=== PATIENT | female | born 1940 | race Caucasian/White ===

== ENCOUNTER 2019-11-18 20:42 | Inpatient (IN) | payer MEDICARE, OTHER ==
[~2019-11-18] VITALS: Ht 160 cm; Wt 68.0 kg
--- NOTE | 2019-11-18 20:55 | NUR ---
BIB AMBULANCE WITH REPORT OF SOB/FEVER/NON-VERBAL 3 HRS TANK CHARGER.
[2019-11-18] MEDS ORDERED: IV NS 1000 ML 1,000 ML IV ONE (20:59)
[2019-11-18 21:23] LABS: BASOPHILS # (AUTO) 0.1 K/uL (0.0-8.0); BASOPHILS % (AUTO) 0.5 % (0.0-2.0); EOSINOPHILS # (AUTO) 0.2 K/uL (0.0-0.7); EOSINOPHILS % (AUTO) 1.2 % (0.0-7.0); HEMATOCRIT 42.9 % (31.2-41.9); HEMOGLOBIN 13.8 g/dL (10.9-14.3); LYMPHOCYTES # (AUTO) 2.6 K/uL (20.0-40.0); LYMPHOCYTES % (AUTO) 15.2 % (20.5-51.5); MEAN CORPUSCULAR HEMOGLOBIN 26.3 uug (24.7-32.8); MEAN CORPUSCULAR HGB CONC 32 g/dL (32.3-35.6); MEAN CORPUSCULAR VOLUME 82.1 fL (75.5-95.3); MONOCYTES # (AUTO) 0.9 K/uL (2.0-10.0); MONOCYTES % (AUTO) 5.1 % (0.0-11.0); NEUTROPHILS # (AUTO) 13.3 K/uL (1.8-8.9); PLATELET COUNT (AUTO) 328 K/uL (179-408); RED BLOOD CELL COUNT(AUTO) 5.22 MIL/uL (3.63-4.92); WHITE BLOOD COUNT (AUTO) 17.1 K/uL (3.8-11.8)
--- NOTE | 2019-11-18 21:26 | NUR ---
Patient transported to CT in stable condition.
[2019-11-18 21:27] LABS: CREATININE 0.9 mg/dL (0.6-1.3)
[2019-11-18 21:39] LABS: *BILIRUBIN,URIN NEGATIVE (NEGATIVE); *BLOOD, URINE TRACE LYSED (NEGATIVE); *CLARITY,URINE CLEAR (CLEAR); *COLOR,URINE YELLOW (YELLOW); *KETONES,URINE NEGATIVE (NEGATIVE); *UROBILINOGEN,URINE 0.2 E.U./dl (NORMAL); LEUKOCYTE ESTERASE ,URINE NEGATIVE (NEGATIVE); NITRITE, URINE NEGATIVE (NEGATIVE); UGLUCOSE NEGATIVE (NEGATIVE)
[2019-11-18 21:39] LABS: BILIRUBIN,TOTAL 0.5 mg/dL (0.2-1.0); TOTAL PROTEIN, SERUM 7.3 g/dL (6.4-8.2)
--- NOTE | 2019-11-18 21:40 | NUR ---
Back from CT.
[2019-11-18] MEDS ORDERED: ACETAMINOPHEN 325 MG SUPP RC ONE (21:45)
[2019-11-18] MEDS ORDERED: ACETAMINOPHEN 650 MG SUPP.RECT RC ONE ×2 (21:45→21:49)
[2019-11-18] MEDS ORDERED: ACETAMINOPHEN 325 MG SUPP ONE (21:51)
--- NOTE | 2019-11-18 21:55 | NUR ---
TELEPHONE CALL TO PT DAUGHTER BELL AND OBTAIN VERBAL CONSENT FOR CT ANGIOGRAM, WITNESSED BY THIS RN AND DEON LOZA.
[2019-11-18] MEDS ORDERED: MEROPENEM 1,000 MG in IV NORMAL SALINE 100 ML IV ONE (22:00)
[2019-11-18] MEDS ORDERED: VANCOMYCIN IV 1,000 MG in IV DEXTROSE 5% 250 ML IV ONE (22:00)
[2019-11-18] MEDS ORDERED: SWABABLE VALVE TRANSFER SET EA MC ONE (22:01)
[2019-11-18] MEDS ORDERED: IOHEXOL 350 100 ML INFUS..BTL ONE (22:01)
[2019-11-18] MEDS ORDERED: IV NORMAL SALINE 250 ML IV ONE (22:01)
[2019-11-18] MEDS ORDERED: VANCOMYCIN IV 200 ML ONE (22:06)
[2019-11-18] MEDS ORDERED: MEROPENEM 1GM/NS 100ML IVPB **ER PYXIS ONLY IV ONE (22:07)
[2019-11-18 22:10] LABS: BACTERIA,URINE NONE SEEN /HPF (NONE SEEN); WBC,URINE 0-3 /HPF (0-3)
--- NOTE | 2019-11-18 22:43 | NUR ---
Back from CT.
--- NOTE | 2019-11-18 23:22 | NUR ---
Cooling measure provided.
--- NOTE | 2019-11-18 23:32 | NUR ---
Dr. Jones at bedside.
[2019-11-19] MEDS ORDERED: CEFTRIAXONE 2 G in IV DEXTROSE 5% 100 ML IV ONE ×2
[2019-11-19] MEDS ORDERED: CEFTRIAXONE 1 G VIAL ONE (00:06)
[2019-11-19] MEDS ORDERED: MEROPENEM 500MG/NS 50ML PB ***ER PYXIS ONLY IV ONE (00:06)
--- NOTE | 2019-11-19 00:43 | NUR ---
Dr. Jones on panel call with Julissa Gaming . Patient accepted for admission to tele unit, Dx Encephalopaty and febrile illness. .
[2019-11-19] MEDS ORDERED: Z GUARD REMEDY PASTE 57 GM TUBE TOP PRN (00:45)
[2019-11-19] MEDS ORDERED: ONDANSETRON 4 MG/2 ML VIAL IV PRN (00:45)
[2019-11-19] MEDS ORDERED: MORPHINE SULFATE 2 MG/1 ML DISP.SYRIN IV PRN (00:45)
[2019-11-19] MEDS ORDERED: HYDROCODONE/APAP 5-325MG TABLET PO PRN (00:45)
[2019-11-19] MEDS ORDERED: MAGNESIUM HYDROXIDE 30 ML LIQUID UDC PO PRN (00:45)
--- NOTE | 2019-11-19 00:45 | NUR ---
Patient more awake and alert. Able to answer simple question and verbalized her name and her daughter's name. No s/sx of pain or SOB. O2 sat at 99% with O2 at 3LPM via NC in place. Cooling measure continue. Current temp at 101.9 rectally. Continue to monitor.
[2019-11-19] MEDS ORDERED: IV NORMAL SALINE 1000 ML BAG IV ONE (01:00)
--- NOTE | 2019-11-19 01:07 | NUR ---
TC to pt daughter Fabiola and updated on patient current condition and very appreciative of the call. Stated she will call in the morning to get another update regarding pt condition.
[2019-11-19] MEDS ORDERED: ENOXAPARIN SODIUM 40 MG/0.4 ML DISP.SYRIN SQ ONE (01:40)
[2019-11-19] MEDS ORDERED: ACETAMINOPHEN 325 MG TABLET ONE (01:40)
[2019-11-19] MEDS: ENOXAPARIN SODIUM 40 MG/0.4 ML DISP.SYRIN SQ SCH ×2 (01:47→20:49)
--- NOTE | 2019-11-19 03:01 | NUR ---
Patient urinated on the bedpan. Latest temp. 100.8 rectally. Remains awake, alert and verbally responsive.
[2019-11-19] MEDS ORDERED: IV NS 1000 ML 1,000 ML IV ONE (04:00)
--- NOTE | 2019-11-19 05:03 | NUR ---
Patient latest temp 99.4 rectally. Remains awake, alert and verbally responsive, smiling. In no acute distress. Still on O2 at 3LPM via NC in place. O2 sat remains on 100%. IVF infusing to left FA #20G.
[2019-11-19] MEDS ORDERED: MEROPENEM 500 MG VIAL IV ONE (05:19)
[2019-11-19] MEDS ORDERED: MEROPENEM 0.5 G in IV NORMAL SALINE 50 ML IV ONE (06:00)
[2019-11-19 08:30] VITALS: BP 98/43
--- NOTE | 2019-11-19 08:30 | NUR ---
Received pt from ER via [facility].Pt noted to have SOB on exertion.Placed on oxygen via NC at 4liters.Pt speaks pharsi. no c/o pain.Spoke with patient daughter Fabiola to obtain patient information,code status,medication history.Pt daughter will get list of medications.Will continue to follow up on pt information.
--- NOTE | 2019-11-19 08:31 | NUR ---
On arrival to telemetry, patient started c/o pains to R knee,+old healed surgical scar seen@R knee area, patient also started to have audible adventitious breath sounds while complaining of R knee pains. Patient was assisted to bed by 2 nurses (Cecilio & ), endorsed to DEON Galvan accordingly. COVID-19 isolation observed.
[2019-11-19 10:07] VITALS: BP 110/52
[2019-11-19] MEDS: VANCOMYCIN IV 750 MG in IV DEXTROSE 5% 250 ML IV SCH ×2 (11:57→22:54)
[2019-11-19 14:00] VITALS: BP 108/55
[2019-11-19] MEDS ORDERED: MEROPENEM 0.5 G in IV NORMAL SALINE 50 ML IV SCH (14:00)
--- NOTE | 2019-11-19 16:32 | NUR ---
Spoke with pt daughter Fabiola regarding pt is negative for COvid.
[2019-11-19] MEDS: ALBUTEROL SULFATE 8 GM HFA.AER.AD IH PRN ×2 (16:43→22:06)
[2019-11-19 17:00] VITALS: BP 95/45
[2019-11-19] MEDS ORDERED: MEROPENEM 1 G in IV NORMAL SALINE 100 ML IV SCH (18:00)
[2019-11-19 18:30] VITALS: BP 107/48
--- NOTE | 2019-11-19 20:00 | NUR ---
Patient received into care laying in bed, resting comfortably. Patient is Farsi speaking but can speak/understand some Greenlandic. Patient has no complaints of pain or discomfort at this. All safety, fall, allergy, and isolation precautions are in place. Call light and personal items are within reach at all times. Will continue to monitor and assess.
--- NOTE | 2019-11-19 20:20 | NUR ---
This nurse was notified by LILY Cruz that pt has a oral temperature of 102.1. This nurse initiated cooling measures and provided pt with prescribed oral Tylenol 650mg. Will continue to monitor and assess.
[2019-11-19 20:21] VITALS: BP 102/47
[2019-11-19] MEDS: methylPREDNISolone SOD SUCC 40 MG/ML VIAL IV SCH (20:48)
--- NOTE | 2019-11-19 20:50 | NUR ---
This nurse was providing patient's 2100h prescribed medications when she noticed that pt was SOB at 45 RR/min 98% oxygen saturation at 4L/min with audible wheezing. This nurse called for a rapid response and notified DIRECTOR PHYSICAL THERAPY [facility] of patient's current status. MD Becerra ordered stat CXR, ABGs, and CBC/BNP. Will continue to monitor and assess.
[2019-11-19] MEDS: ACETAMINOPHEN 325 MG TABLET PO PRN (20:52)
--- NOTE | 2019-11-19 21:30 | NUR ---
This nurse reassessed pt's oral temperature and it is now 99.1. Will continue to monitor and asses.
[2019-11-19] MEDS ORDERED: FUROSEMIDE 20 MG/2 ML VIAL IV ONE (21:45)
--- NOTE | 2019-11-19 21:45 | NUR ---
AMBER Spring ordered 20mg Lasix one time IV push. This nurse contacted CUP SETTER LOCKSTITCH to advise of pt BP of 102/59. AMBER Spring said okay to hold. Will continue to monitor and assess. Addendum: 11/19/19 at 2220 by ZAKIA REES RN AMBER Spring said okay to hold 20mg Lasix.
[2019-11-19 22:49] LABS: BASOPHILS % (AUTO) 0.1 % (0.0-2.0); CREATININE 0.8 mg/dL (0.6-1.3); HEMATOCRIT 36.9 % (31.2-41.9); HEMOGLOBIN 11.8 g/dL (10.9-14.3); LYMPHOCYTES # (AUTO) 1.3 K/uL (20.0-40.0); LYMPHOCYTES % (AUTO) 6.4 % (20.5-51.5); MEAN CORPUSCULAR HEMOGLOBIN 26.1 uug (24.7-32.8); MEAN CORPUSCULAR HGB CONC 32 g/dL (32.3-35.6); MEAN CORPUSCULAR VOLUME 82.1 fL (75.5-95.3); MONOCYTES # (AUTO) 1.6 K/uL (2.0-10.0); MONOCYTES % (AUTO) 7.6 % (0.0-11.0); NEUTROPHILS # (AUTO) 17.5 K/uL (1.8-8.9); NEUTROPHILS % (AUTO) 85.9 % (38.5-71.5); PLATELET COUNT (AUTO) 264 K/uL (179-408); POTASSIUM 3.1 mmol/L (3.5-5.1); WHITE BLOOD COUNT (AUTO) 20.4 K/uL (3.8-11.8)
--- NOTE | 2019-11-19 23:45 | NUR ---
This nurse contacted DEVELOPMENT ASSOCIATE [place] regarding new order for IV Merrem 1g q 8 hours d/t patient already having an order for Merrem 1g q 12h. This nurse provided patient's current BUN 13 and Creatinine 0.8. DEVELOPMENT ASSOCIATE Clementine advised to d/c Merrem 1g q 12h and change to Merrem 1g q 8h.
[2019-11-20] MEDS ORDERED: MEROPENEM 1 G in IV NORMAL SALINE 100 ML IV SCH ×3 (00:25→14:00)
[2019-11-20 00:34] VITALS: BP 111/42
--- NOTE | 2019-11-20 05:00 | NUR ---
Patient slept comfortably throughout night with no further episodes of tachypnea noted by this nurse. All prescribed medications and IV antibiotics provided as ordered and tolerated well by patient, with no ASE noted/observed by this nurse. All safety, isolation, allergy, and fall precautions remain in place. Call light and personal items remain within reach. Patient's daughter, Fabiola, is going to bring patient's dentures and home medication list to hospital today, 11/20/2019, and leave them with security
[2019-11-20 05:24] VITALS: BP 110/42
[2019-11-20 05:49] LABS: ABG BASE EXCESS 1.2 mmol/L; ABG HCO3 24.9 mmol/L; ABG PCO2 36.1 mmHg (35.0-45.0); ABG PH 7.456 (7.350-7.450); ABG PO2 87.5 mmHg (75.0-100.0); ABG SITE RIGHT RADIAL; ABG TOTAL HEMOGLOBIN 12.2 G/dL (12.0-16.0); COHb 0.9 % (0.5-1.5); MetHb 0.3 % (0.0-1.5); O2Hb 96.2 % (94.0-97.0); VENT MODE Nasal Cannula
[2019-11-20 05:52] LABS: BASOPHILS # (AUTO) 0.1 K/uL (0.0-8.0); BASOPHILS % (AUTO) 0.5 % (0.0-2.0); HEMATOCRIT 38.7 % (31.2-41.9); HEMOGLOBIN 12.2 g/dL (10.9-14.3); LYMPHOCYTES # (AUTO) 1.3 K/uL (20.0-40.0); LYMPHOCYTES % (AUTO) 6.2 % (20.5-51.5); MEAN CORPUSCULAR HEMOGLOBIN 25.9 uug (24.7-32.8); MEAN CORPUSCULAR HGB CONC 31 g/dL (32.3-35.6); MEAN CORPUSCULAR VOLUME 82.4 fL (75.5-95.3); MONOCYTES % (AUTO) 4.8 % (0.0-11.0); NEUTROPHILS # (AUTO) 18.9 K/uL (1.8-8.9); NEUTROPHILS % (AUTO) 88.5 % (38.5-71.5); PLATELET COUNT (AUTO) 265 K/uL (179-408); WHITE BLOOD COUNT (AUTO) 21.4 K/uL (3.8-11.8)
[2019-11-20 06:37] LABS: BILIRUBIN,TOTAL 0.7 mg/dL (0.2-1.0); MAGNESIUM 1.8 mg/dL (1.8-2.4); PHOSPHOROUS 2.8 mg/dL (2.5-4.9); POTASSIUM 3.4 mmol/L (3.5-5.1); TOTAL PROTEIN, SERUM 6.3 g/dL (6.4-8.2)
--- NOTE | 2019-11-20 07:30 | NUR ---
Received patient resting comfortably in bed. No sign of respiratory distress noted, patient is saturating well on 3 L of oxygen. A slight wheeze can be heard from the patient's lungs. Will talk to Dr Mao about breathing treatments for the patient once Covid results are complete. Patient denies any pain at this time. IV in right upper arm midline 180 gauge running 10 ml/hr to keep line open. Patient is awake alert and oriented, Farsi speaking but is able to make needs know. At this time patient is still on isolations precautions. Safety precautions in place, bed in lowest position and locked with alarm activated. Patient belongings and call light within reach. Will continue to monitor.
[2019-11-20] MEDS: methylPREDNISolone SOD SUCC 40 MG/ML VIAL IV SCH ×3 (08:59→21:10)
[2019-11-20] MEDS ORDERED: MEROPENEM 0.5 G in IV NORMAL SALINE 50 ML IV SCH (09:00)
[2019-11-20] MEDS ORDERED: POTASSIUM CHLORIDE 20 MEQ TAB.PRT.SR PO ONE ×2 (11:00→11:20)
[2019-11-20 11:30] VITALS: BP 104/57
[2019-11-20] MEDS: VANCOMYCIN IV 750 MG in IV DEXTROSE 5% 250 ML IV SCH ×2 (11:38→22:13)
[2019-11-20] MEDS: MEROPENEM 1 G in IV NORMAL SALINE 100 ML IV SCH (13:50)
[2019-11-20] MEDS: IPRATROPIUM BROMIDE 0.5 MG/2.5 ML NEBU NEB SCH ×2 (15:47→21:11)
[2019-11-20] MEDS: ALBUTEROL SULFATE 2.5 MG/ 0.5 ML NEBU NEB SCH ×2 (15:47→21:11)
[2019-11-20 16:00] VITALS: BP 112/36
--- NOTE | 2019-11-20 17:45 | NUR ---
Last temperature was 99.2, offered patient ice packs to which she refused. Will continue to monitor
[2019-11-20] MEDS: MONTELUKAST SODIUM 10 MG TABLET PO SCH (18:02)
--- NOTE | 2019-11-20 18:38 | NUR ---
Patient is resting comfortably in bed with no sign of respiratory distress noted by this nurse. All prescribed medications and IV antibiotics provided as ordered and tolerated well by patient, with no adverse side effects observed. Patient's PCR results also came back negative, waiting for MD to DC isolation. All safety, isolation, allergy, and fall precautions remain in place. Call light and personal items remain within reach. Will endorse to the oncoming nurse.
--- NOTE | 2019-11-20 19:15 | NUR ---
Received pt in bed, resting comfortably. Pt is awake and has no s/s of acute distress or pain at this time. V/S stable on 3L NC at 97%. [place] midline is intact and has no s/s of infection noted. Pt. is afebrile. Safety measures in place. Bed alarm on. Side railsx2 up. Personal belongings and call light within reach. Will continue with the plan of care.
[2019-11-20 20:00] VITALS: BP 90/38
[2019-11-20] MEDS: ENOXAPARIN SODIUM 40 MG/0.4 ML DISP.SYRIN SQ SCH (21:12)
[2019-11-21] MEDS: ALBUTEROL SULFATE 2.5 MG/ 0.5 ML NEBU NEB SCH ×5 (00:05→20:40)
[2019-11-21] MEDS: IPRATROPIUM BROMIDE 0.5 MG/2.5 ML NEBU NEB SCH ×5 (00:05→20:40)
[2019-11-21 00:33] VITALS: BP 107/40
[2019-11-21] MEDS: MEROPENEM 1 G in IV NORMAL SALINE 100 ML IV SCH ×2 (01:09→13:38)
[2019-11-21] MEDS: ACETAMINOPHEN 325 MG TABLET PO PRN (01:17)
[2019-11-21] MEDS: methylPREDNISolone SOD SUCC 40 MG/ML VIAL IV SCH ×2 (05:12→20:35)
[2019-11-21 05:41] LABS: BASOPHILS # (AUTO) 0.1 K/uL (0.0-8.0); BASOPHILS % (AUTO) 0.3 % (0.0-2.0); HEMATOCRIT 36.5 % (31.2-41.9); HEMOGLOBIN 11.5 g/dL (10.9-14.3); LYMPHOCYTES # (AUTO) 1.3 K/uL (20.0-40.0); LYMPHOCYTES % (AUTO) 5.9 % (20.5-51.5); MEAN CORPUSCULAR HGB CONC 32 g/dL (32.3-35.6); MEAN CORPUSCULAR VOLUME 82.3 fL (75.5-95.3); MONOCYTES # (AUTO) 0.7 K/uL (2.0-10.0); MONOCYTES % (AUTO) 3.2 % (0.0-11.0); NEUTROPHILS # (AUTO) 19.7 K/uL (1.8-8.9); NEUTROPHILS % (AUTO) 90.6 % (38.5-71.5); PLATELET COUNT (AUTO) 307 K/uL (179-408); RED BLOOD CELL COUNT(AUTO) 4.44 MIL/uL (3.63-4.92); WHITE BLOOD COUNT (AUTO) 21.7 K/uL (3.8-11.8)
[2019-11-21 06:01] LABS: MAGNESIUM 2.1 mg/dL (1.8-2.4); PHOSPHOROUS 2.2 mg/dL (2.5-4.9)
[2019-11-21 06:07] LABS: CREATININE 0.8 mg/dL (0.6-1.3); POTASSIUM 3.7 mmol/L (3.5-5.1)
[2019-11-21 06:25] VITALS: BP 117/45
--- NOTE | 2019-11-21 06:51 | NUR ---
Pt slept intermittently throughout the night. Pt is awake and has no s/s of acute distress or pain at this time. Pt is febrile with 99.6 temp. Tylenol was given. Will continue to monitor. Otherwise V/S stable on 3L NC at 97%. Pt is NSR 68 on tele monitor. Comfort care and needs attended. Fall and aspiration precaution maintained. Safety measures in place. Bed low and locked in position, call light within reach. Will endorse to the oncoming nurse accordingly.
--- NOTE | 2019-11-21 07:35 | NUR ---
Patient is resting comfortably in bed with no sign of respiratory distress noted by this nurse. Report from nurse noted elevated temperature but not time for prescribed medication. Started with cooling measures, placed ice packs in groin tylor and armpit. Patient is no longer on isolation, Covid results cam back negative. IV in right upper arm midline 18 gauge. Patient is also on 3L of oxygen and saturating well. All safety, isolation, allergy, and fall precautions remain in place. Call light and personal items remain within reach. Will continue to monitor and observe
[2019-11-21] MEDS: VANCOMYCIN IV 750 MG in IV DEXTROSE 5% 250 ML IV SCH ×2 (11:11→22:29)
[2019-11-21 11:31] VITALS: BP 100/48
[2019-11-21] MEDS ORDERED: NEUTRA PHOS PACKET PO ONE (16:30)
[2019-11-21] MEDS: MONTELUKAST SODIUM 10 MG TABLET PO SCH (17:37)
--- NOTE | 2019-11-21 18:47 | NUR ---
Patient is resting comfortably in bed with no sign of respiratory distress noted by this nurse. All prescribed medications and IV antibiotics provided as ordered and tolerated well by patient, with no adverse side effects observed. All safety, isolation, allergy, and fall precautions remain in place. Call light and personal items remain within reach. Will endorse to the oncoming nurse.
--- NOTE | 2019-11-21 19:45 | NUR ---
Received patient awake and alert. Patient shows no signs or symptom of distress at this time. Vital signs stable. Afebrile at this time. NSR on tele monitor. Bed set to lowest position. Call light within reach. Side rails X2 are up. Will continue to monitor patient.
[2019-11-21 20:00] VITALS: BP 127/53
[2019-11-21] MEDS: ENOXAPARIN SODIUM 40 MG/0.4 ML DISP.SYRIN SQ SCH (20:34)
[2019-11-22] VITALS: BP 99/40
[2019-11-22] MEDS: MEROPENEM 1 G in IV NORMAL SALINE 100 ML IV SCH ×2 (01:08→14:11)
[2019-11-22 04:00] VITALS: BP 114/40
--- NOTE | 2019-11-22 06:11 | NUR ---
Patient shows no signs or symptoms of distress at this time. Resting comfortably in bed. Vital signs stable. Afebrile throughout the shift. 98% O2 saturation with 3L NC. NSR on tele monitor. Received call from Abida, Nuclear Medicine, and WBC scan will be done around [id number]. Will endorse patient to day shift nurse in stable condition.
[2019-11-22] MEDS: ALBUTEROL SULFATE 2.5 MG/ 0.5 ML NEBU NEB SCH ×4 (07:35→20:14)
[2019-11-22] MEDS: IPRATROPIUM BROMIDE 0.5 MG/2.5 ML NEBU NEB SCH ×4 (07:35→20:14)
--- NOTE | 2019-11-22 08:00 | NUR ---
Wheezing noted on patient. Pt alert and oriented x 4. PT Farsi speaking but able to make her needs known. R brachial MIDLINE sluggish on flushing. Decreased o2 to 2 lit with saturation of 96%. Pt denies any c/o pain. Call light is within reach.
[2019-11-22] MEDS: methylPREDNISolone SOD SUCC 40 MG/ML VIAL IV SCH ×2 (08:44→21:03)
[2019-11-22 09:33] LABS: CREATININE 0.8 mg/dL (0.6-1.3); POTASSIUM 3.9 mmol/L (3.5-5.1)
[2019-11-22] MEDS: VANCOMYCIN IV 750 MG in IV DEXTROSE 5% 250 ML IV SCH ×2 (11:53→22:43)
[2019-11-22 12:00] VITALS: BP 140/58
--- NOTE | 2019-11-22 13:00 | NUR ---
PT taken back by nuclear med by
[2019-11-22 16:32] VITALS: BP 124/69
--- NOTE | 2019-11-22 17:00 | NUR ---
NEW MIDLINE inserted by PICC line nurse on left brachial. Pt tolerated procedure.
[2019-11-22] MEDS: MONTELUKAST SODIUM 10 MG TABLET PO SCH (18:08)
--- NOTE | 2019-11-22 18:15 | NUR ---
1800Called LAb secondary to recheck of h/h is not done yet. microbiology technologist states shell draw blood soon. 1814 Noted laboratory animal caretaker here to draw blood on patient. Urine specimen sent to lab as ordered. Pt tolerated the blood transfusion - ended @ 1525. No reaction noted. Pt started on clear liquid - no c/o n/v. Pt is in no acute distress. Addendum: 11/22/19 at 1857 by MANJULA DE LA CRUZ RN wrong patient
--- NOTE | 2019-11-22 20:00 | NUR ---
RECEIVED PATIENT AWAKE IN BED. PATIENT IS A/O X3, FARSI SPEAKING BUT ABLE TO MAKE NEEDS KNOWN. PATIENT DENIES ANY PAIN OR DISCOMFORT. NO RESP. DISTRESS NOTED. VSS. MID-LINE NOTED TO LEFT UPPER ARM, INTACT AND PATENT. ON O2 2L NC SATING WELL. NO RESP. DISTRESS NOTED. BED ALARM ON. CALL LIGHT IN REACH. ALL NEEDS ATTENDED. WILL CONTINUE TO MONITOR AND ASSESS.
[2019-11-22] MEDS: ENOXAPARIN SODIUM 40 MG/0.4 ML DISP.SYRIN SQ SCH (20:18)
[2019-11-22 20:45] VITALS: BP 138/53
[2019-11-23 00:33] VITALS: BP 152/60
[2019-11-23] MEDS: MEROPENEM 1 G in IV NORMAL SALINE 100 ML IV SCH ×2 (01:51→14:01)
[2019-11-23] MEDS: TEMAZEPAM 15 MG CAPSULE PO PRN (02:08)
[2019-11-23 04:00] VITALS: BP 150/62
[2019-11-23 07:10] LABS: BILIRUBIN,TOTAL 0.4 mg/dL (0.2-1.0); CREATININE 0.9 mg/dL (0.6-1.3); MAGNESIUM 2.2 mg/dL (1.8-2.4); PHOSPHOROUS 3.5 mg/dL (2.5-4.9); POTASSIUM 4.1 mmol/L (3.5-5.1); TOTAL PROTEIN, SERUM 6.1 g/dL (6.4-8.2)
[2019-11-23] MEDS: IPRATROPIUM BROMIDE 0.5 MG/2.5 ML NEBU NEB SCH ×4 (07:26→20:21)
[2019-11-23] MEDS: ALBUTEROL SULFATE 2.5 MG/ 0.5 ML NEBU NEB SCH ×4 (07:26→20:21)
[2019-11-23] MEDS: methylPREDNISolone SOD SUCC 40 MG/ML VIAL IV SCH ×2 (08:06→21:00)
[2019-11-23 10:19] LABS: BASOPHILS % (AUTO) 0.4 % (0.0-2.0); HEMATOCRIT 38.6 % (31.2-41.9); HEMOGLOBIN 12.2 g/dL (10.9-14.3); LYMPHOCYTES # (AUTO) 1.5 K/uL (20.0-40.0); LYMPHOCYTES % (AUTO) 12.7 % (20.5-51.5); MEAN CORPUSCULAR HEMOGLOBIN 26.1 uug (24.7-32.8); MEAN CORPUSCULAR HGB CONC 32 g/dL (32.3-35.6); MEAN CORPUSCULAR VOLUME 82.5 fL (75.5-95.3); MONOCYTES # (AUTO) 0.5 K/uL (2.0-10.0); MONOCYTES % (AUTO) 3.8 % (0.0-11.0); NEUTROPHILS % (AUTO) 83.1 % (38.5-71.5); PLATELET COUNT (AUTO) 382 K/uL (179-408); RED BLOOD CELL COUNT(AUTO) 4.68 MIL/uL (3.63-4.92)
[2019-11-23] MEDS: VANCOMYCIN IV 750 MG in IV DEXTROSE 5% 250 ML IV SCH ×2 (12:18→23:36)
[2019-11-23 12:55] VITALS: BP 126/46
[2019-11-23 16:00] VITALS: BP 120/48
[2019-11-23] MEDS: MONTELUKAST SODIUM 10 MG TABLET PO SCH (17:17)
[2019-11-23 20:12] VITALS: BP 116/47
[2019-11-23] MEDS: ENOXAPARIN SODIUM 40 MG/0.4 ML DISP.SYRIN SQ SCH (21:01)
[2019-11-24 00:06] VITALS: BP 141/53
[2019-11-24] MEDS: MEROPENEM 1 G in IV NORMAL SALINE 100 ML IV SCH ×2 (01:05→13:52)
[2019-11-24 04:12] VITALS: BP 142/47
--- NOTE | 2019-11-24 05:36 | NUR ---
Pt rested well in between care;; tolerated Merrem and Vanco IVPB; midline in place; assisted to ambulate to bathroom; continue to monitor; continue plan of care;
[2019-11-24] MEDS: ALBUTEROL SULFATE 2.5 MG/ 0.5 ML NEBU NEB SCH ×4 (07:05→19:55)
[2019-11-24] MEDS: IPRATROPIUM BROMIDE 0.5 MG/2.5 ML NEBU NEB SCH ×4 (07:05→19:55)
[2019-11-24 07:14] LABS: BASOPHILS # (AUTO) 0.1 K/uL (0.0-8.0); BASOPHILS % (AUTO) 0.7 % (0.0-2.0); CREATININE 0.8 mg/dL (0.6-1.3); HEMATOCRIT 42.1 % (31.2-41.9); HEMOGLOBIN 13.4 g/dL (10.9-14.3); LYMPHOCYTES % (AUTO) 14.7 % (20.5-51.5); MAGNESIUM 2.2 mg/dL (1.8-2.4); MEAN CORPUSCULAR HEMOGLOBIN 26.2 uug (24.7-32.8); MEAN CORPUSCULAR HGB CONC 32 g/dL (32.3-35.6); MEAN CORPUSCULAR VOLUME 82.4 fL (75.5-95.3); MONOCYTES # (AUTO) 0.7 K/uL (2.0-10.0); MONOCYTES % (AUTO) 5.4 % (0.0-11.0); NEUTROPHILS # (AUTO) 10.6 K/uL (1.8-8.9); NEUTROPHILS % (AUTO) 79.2 % (38.5-71.5); PLATELET COUNT (AUTO) 397 K/uL (179-408); POTASSIUM 4.3 mmol/L (3.5-5.1); RED BLOOD CELL COUNT(AUTO) 5.11 MIL/uL (3.63-4.92); WHITE BLOOD COUNT (AUTO) 13.4 K/uL (3.8-11.8)
--- NOTE | 2019-11-24 07:30 | NUR ---
IN BED AWAKE, RESTING COMFORTABLY, NO SS OF PAIN OR DISTRESS. SR/SB ON MONITOR. CLOSELY MONITORED
[2019-11-24] MEDS: methylPREDNISolone SOD SUCC 40 MG/ML VIAL IV SCH (07:56)
[2019-11-24 11:26] VITALS: BP 148/60
--- NOTE | 2019-11-24 12:00 | NUR ---
SEEN BY DR NOGUEIRA AND DR AMIN SEE NOTES
[2019-11-24] MEDS: VANCOMYCIN IV 750 MG in IV DEXTROSE 5% 250 ML IV SCH ×2 (12:09→22:11)
[2019-11-24 15:35] VITALS: BP 102/48
[2019-11-24] MEDS: MONTELUKAST SODIUM 10 MG TABLET PO SCH (16:45)
[2019-11-24] MEDS: predniSONE 20 MG TABLET PO SCH (16:45)
[2019-11-24 18:18] LABS: NEUTROPHILS % (MANUAL) 80 % (42-75)
[2019-11-24 18:19] LABS: LYMPHOCYTES % (MANUAL) 17 % (20-40); MONOCYTES % (MANUAL) 3 % (2-10)
--- NOTE | 2019-11-24 18:23 | NUR ---
TOLERATING RA SATURATING 94-95%, NO REACTION FROM IV ANTIBIOTICS. SR ON MONITOR
[2019-11-24 20:06] VITALS: BP 117/40
[2019-11-24] MEDS: ENOXAPARIN SODIUM 40 MG/0.4 ML DISP.SYRIN SQ SCH (20:25)
[2019-11-25 00:06] VITALS: BP 122/58
[2019-11-25] MEDS: MEROPENEM 1 G in IV NORMAL SALINE 100 ML IV SCH ×2 (01:44→13:44)
[2019-11-25] MEDS: TEMAZEPAM 15 MG CAPSULE PO PRN (02:24)
[2019-11-25 04:09] VITALS: BP 129/61
--- NOTE | 2019-11-25 07:30 | NUR ---
awake alert and oreinted x3, no ss of pain or distress. remains sr on monitor. afebrile
[2019-11-25] MEDS: IPRATROPIUM BROMIDE 0.5 MG/2.5 ML NEBU NEB SCH ×3 (07:59→15:42)
[2019-11-25] MEDS: ALBUTEROL SULFATE 2.5 MG/ 0.5 ML NEBU NEB SCH ×3 (07:59→15:42)
[2019-11-25] MEDS: predniSONE 20 MG TABLET PO SCH ×2 (08:02→16:03)
[2019-11-25] MEDS: ACETAMINOPHEN 325 MG TABLET PO PRN (08:03)
[2019-11-25] MEDS: VANCOMYCIN IV 750 MG in IV DEXTROSE 5% 250 ML IV SCH (10:38)
[2019-11-25 11:44] VITALS: BP 100/42
--- NOTE | 2019-11-25 13:00 | NUR ---
CONGRESSIONAL REPRESENTATIVE CASSIE NOTIFIED AND SPOKE WITH FAMILY REGARDING DC PLANNING. PATIENT WILL BE PICK-UP BY FAMILY AT 5:00 PM.
[2019-11-25] MEDS ORDERED: ALBU8HFA4 IH (14:14)
[2019-11-25] MEDS ORDERED: ACET325T53 PO (14:14)
[2019-11-25] MEDS ORDERED: CLIN300C11 PO (14:14)
[2019-11-25] MEDS ORDERED: MONT10TA27 PO (14:14)
[2019-11-25] MEDS ORDERED: PRED20TA PO (14:14)
--- NOTE | 2019-11-25 14:29 | NUR ---
SEEN BY DR MOSHER WITH ORDER FOR DISCHARGE. WILL NOTIFY HVAC DESIGNER AND FAMILY.
[2019-11-25] MEDS ORDERED: CEFD300C3 PO (14:37)
[2019-11-25 15:38] VITALS: BP 143/59
--- NOTE | 2019-11-25 16:00 | NUR ---
TRIED TO SCHEDULE PATIENT UNDER DR MARIE FOR FOLLOW-UP. MESSAGE LEFT WITH SERVICE AND WILL SCHEDULE A DATE
[2019-11-25] MEDS: MONTELUKAST SODIUM 10 MG TABLET PO SCH (16:04)
--- NOTE | 2019-11-25 18:11 | NUR ---
daughter waiting in the car at the front entrance, escorted to car per w/c in stable condition, discharge instructions reinforced to daughter, verbalized understanding, all belongings with pt.
== END 2019-11-25 18:10 | disposition home health service (06) | DRG 871 ==
LOC: ER 20:44 → TELE3 11-19 08:14 → TELE-TD3 11-19 10:02 → TELE3 11-19 16:37
PROVIDERS: ADMIT Nurse Practitioner Acute Care; ATTEND Nurse Practitioner Acute Care
PROC: 05H533Z Insertion of Infusion Device into Right Subclavian Vein, Percutaneous Approach (ICD-10-PCS; principal; 2019-11-19)
PROC: B546ZZA Ultrasonography of Right Subclavian Vein, Guidance (ICD-10-PCS; 2019-11-19)
DX: A41.9 Sepsis, unspecified organism (principal); J96.01 Acute respiratory failure with hypoxia; E43 Unspecified severe protein-calorie malnutrition; G92 Toxic encephalopathy; J45.901 Unspecified asthma with (acute) exacerbation; E03.9 Hypothyroidism, unspecified; I10 Essential (primary) hypertension; I25.10 Atherosclerotic heart disease of native coronary artery without angina pectoris; K21.9 Gastro-esophageal reflux disease without esophagitis; Z88.0 Allergy status to penicillin; Z90.49 Acquired absence of other specified parts of digestive tract; M19.90 Unspecified osteoarthritis, unspecified site; K76.0 Fatty (change of) liver, not elsewhere classified; E88.09 Other disorders of plasma-protein metabolism, not elsewhere classified; Z68.26 Body mass index [BMI] 26.0-26.9, adult; Z96.651 Presence of right artificial knee joint; H26.9 Unspecified cataract; J32.8 Other chronic sinusitis; B96.89 Other specified bacterial agents as the cause of diseases classified elsewhere
CPT/HCPCS: 36415; 36600; 70030-TC; 70450; 71045; 71275; 82785; 83605; 83615; 83735; 84100; 84443; 85025; 85730; 86140; 87040; 87070; 87086; 87400; 93005; 93307; 94640; 94664; A4663; A9547; C1758; G0378; J0696; J1650; J2185; J2920; J3370; J3490; J3535; J3590; J7030; J7040; J7050; J7060; J7512; Q9967; U0003-CS

== ENCOUNTER 2024-03-03 23:28 | Emergency (ER) | payer MEDICARE, OTHER ==
[~2024-03-03] VITALS: Ht 157.5 cm; Wt 63.5 kg
[~2024-03-03 23:28] MED LIST: ACET325T53 PO; ALBU8HFA4 IH; CEFD300C3 PO; CLIN300C12 PO; MONT10TA33 PO; PRED20TA PO
[2024-03-03] MEDS ORDERED: ONDANSETRON 4 MG/2 ML VIAL ONE (23:59)
[2024-03-03] MEDS ORDERED: HYDROMORPHONE 1 MG/1 ML DISP.SYRIN ONE (23:59)
[2024-03-04] MEDS: ONDANSETRON 4 MG/2 ML VIAL IV ONE (00:02)
[2024-03-04] MEDS: HYDROMORPHONE 1 MG/1 ML DISP.SYRIN IV ONE (00:02)
[2024-03-04] MEDS ORDERED: ONDA4TAB11 PO (01:06)
[2024-03-04] MEDS ORDERED: HYDR-3980 PO (01:06)
[2024-03-04 01:45] VITALS: BP 118/65; TEMP 98; O2SAT 97
== END 2024-03-04 01:45 | disposition home or self-care (01) ==
LOC: ER 23:35
DX: S20.212A Contusion of left front wall of thorax, initial encounter (principal); E78.00 Pure hypercholesterolemia, unspecified; Z79.52 Long term (current) use of systemic steroids; Z96.651 Presence of right artificial knee joint; Z88.0 Allergy status to penicillin; Z88.1 Allergy status to other antibiotic agents; X58.XXXA Exposure to other specified factors, initial encounter; Y93.01 Activity, walking, marching and hiking; Y92.89 Other specified places as the place of occurrence of the external cause; Y99.8 Other external cause status
CPT/HCPCS: 99284; 71101; 73060; 93005; 96374; 96375; 72170; J2405; J1171; A4606; A4663